=== PATIENT | female | born 1995 | race Caucasian/White ===

== ENCOUNTER → 2021-12-11 09:39 | Outpatient (CLI) | payer OTHER, SELFPAY ==
[2021-12-11 11:31] LABS: HCG,Quantitative 2677 mIU/ml (0-5.42)
== END ==
PROVIDERS: Visit Provider Obstetrics & Gynecology
DX: N92.6 Irregular menstruation, unspecified (principal)
CPT/HCPCS: 36415; 84702

== ENCOUNTER → 2021-12-20 16:47 | Outpatient (CLI) | payer OTHER, SELFPAY | LOC: LAB 12-21 00:22 → LAB.DROPOF 12-21 11:26 | PROVIDERS: Visit Provider Obstetrics & Gynecology | DX: Z34.90 Encounter for supervision of normal pregnancy, unspecified, unspecified trimester (principal) | CPT/HCPCS: 87086 ==

== ENCOUNTER → 2022-01-04 09:29 | Outpatient (CLI) | payer OTHER, SELFPAY ==
[2022-01-04 12:01] LABS: Basophils # 0.1 K/mm3 (0-0.2); Basophils % 0.6 % (0.1-2.0); Eosinophils # 0.2 K/mm3 (0.0-0.4); Eosinophils % 1.7 % (0.1-12.0); Hematocrit 38.9 % (37.0-47.0); Hemoglobin 13.1 g/dL (12.2-16.2); Lymphocytes # 1.9 K/mm3 (0.7-4.5); Lymphocytes % 18.6 % (10-50); Mean Corpuscular HGB Conc 33.6 g/dL (31.8-35.4); Mean Corpuscular Hemoglobin 28.2 pg (27.0-31.2); Monocytes # 0.5 K/mm3 (0.1-1.0); Monocytes % 4.9 % (1.7-9.3); Neutrophils # 7.7 K/mm3 (1.8-7.8); Neutrophils % 74.2 % (37.0-80.0); Platelet Count 288 K/mm3 (142-424); Red Blood Count 4.63 M/mm3 (4.20-5.40); Red Cell Distribution Width 14.1 % (11.5-17.5); White Blood Count 10.4 K/mm3 (4.8-10.8)
[2022-01-05 09:54] LABS: HIV Screen 4th Generation wRfx Non Reactive (Non Reactive); Hepatitis B Surface Antigen Negative (Negative); Hepatitis C Antibody <0.1 s/co ratio (0.0-0.9); Rubella Antibodies, IgG 2.18 index (Immune >0.99)
[2022-01-05 10:10] LABS: Rapid Plasma Reagin Ab Titer Non Reactive (NonRea<1:1)
== END ==
PROVIDERS: Visit Provider Obstetrics & Gynecology
DX: Z34.90 Encounter for supervision of normal pregnancy, unspecified, unspecified trimester (principal)
CPT/HCPCS: 36415; 85025; 86592; 86703; 86762; 86850; 87340; 87380; G0432

== ENCOUNTER → 2022-04-12 13:48 | Outpatient (CLI) | payer OTHER, SELFPAY ==
--- NOTE | 2022-04-12 13:48 | US_ITS ---
FINAL REPORT CLINICAL HISTORY: 20 week anatomy scan FINDINGS: There is a single live intrauterine gestation. Presentation is cephalic. Placenta is anterior. movement is noted. Cervix is closed and measures 3.57 cm. heart rate is noted at 158 beats per minute. Visualized anatomy is unremarkable. AMNIOTIC FLUID: Appropriate amount. MEASUREMENTS: ULTRASOUND AGE: 22 weeks 5 days. GESTATION AGE: 22 weeks 2 days. ESTIMATED WEIGHT: 526 g GROWTH PERCENTILE: 65 % BPD: 5.56 cm consistent with 23 weeks 0 days. OFD: 6.89 cm consistent with 22 weeks 3 days. HC: 19.67 cm consistent with 22 weeks 0 days. AC: 17.75 cm consistent with 22 weeks 5 days. FL: 4.01 cm consistent with 23 weeks 0 days. CEREBELLUM: 2.25 cm consistent with 22 weeks 3 days. HUMERUS: 3.68 cm consistent with 22 weeks 6 days. HC/AC: 1.11 CI: 81% FL/BPD: 72% FL/AC: 23% IMPRESSION: Single living IUP with an ultrasound age of 22 weeks 5 days. Reviewed, Interpreted and Dictated by Segun Bahena MD Transcribed by Merary Akbar Authenticated and [facility] [place]
== END ==
PROVIDERS: PCP Obstetrics & Gynecology; Visit Provider Obstetrics & Gynecology
DX: Z34.90 Encounter for supervision of normal pregnancy, unspecified, unspecified trimester (principal); Z3A.20 20 weeks gestation of pregnancy
CPT/HCPCS: 76811

== ENCOUNTER → 2022-05-04 08:12 | Outpatient (CLI) | payer OTHER, SELFPAY ==
[2022-05-04 08:40] LABS: Basophils # 0.1 K/mm3 (0-0.2); Basophils % 0.6 % (0.1-2.0); Eosinophils # 0.3 K/mm3 (0.0-0.4); Eosinophils % 2.5 % (0.1-12.0); Hematocrit 36.3 % (37.0-47.0); Lymphocytes # 1.8 K/mm3 (0.7-4.5); Lymphocytes % 17.9 % (10-50); Mean Corpuscular HGB Conc 33.1 g/dL (31.8-35.4); Mean Corpuscular Hemoglobin 27.8 pg (27.0-31.2); Mean Corpuscular Volume 84.1 fl (81-99); Mean Platelet Volume 9.2 fl (7.4-10.4); Monocytes # 0.4 K/mm3 (0.1-1.0); Monocytes % 3.6 % (1.7-9.3); Neutrophils # 7.8 K/mm3 (1.8-7.8); Neutrophils % 75.5 % (37.0-80.0); Platelet Count 237 K/mm3 (142-424); Red Blood Count 4.32 M/mm3 (4.20-5.40); Red Cell Distribution Width 14.8 % (11.5-17.5); White Blood Count 10.3 K/mm3 (4.8-10.8)
[2022-05-04 08:49] LABS: Glucose,Fasting 87 mg/dl (74-100)
[2022-05-04 10:05] LABS: Glucose 1 Hour 142 mg/dL (74-100)
== END ==
PROVIDERS: PCP Internal Medicine Adolescent Medicine; Visit Provider Obstetrics & Gynecology
DX: Z34.90 Encounter for supervision of normal pregnancy, unspecified, unspecified trimester (principal)
CPT/HCPCS: 36415; 82951; 85025

== ENCOUNTER → 2022-05-11 08:16 | Outpatient (CLI) | payer OTHER, SELFPAY ==
[2022-05-11 08:45] LABS: Glucose,Fasting 86 mg/dl (74-100)
[2022-05-11 12:00] LABS: Glucose 1 Hour 155 mg/dL (74-100); Glucose 2 Hour 139 mg/dL (74-100)
[2022-05-11 14:16] LABS: Glucose 3 Hour 110 mg/dL (74-100)
== END ==
PROVIDERS: PCP Internal Medicine Adolescent Medicine; Visit Provider Obstetrics & Gynecology
DX: Z3A.24 24 weeks gestation of pregnancy (principal); Z34.90 Encounter for supervision of normal pregnancy, unspecified, unspecified trimester
CPT/HCPCS: 36415; 82951

== ENCOUNTER 2022-07-04 11:56 | Outpatient (CLI) | payer OTHER, SELFPAY ==
[2022-07-04 12:16] VITALS: BMI 36.1
[2022-07-04 12:19] VITALS: BMI 36.1
== END 2022-07-04 14:00 | disposition home or self-care (01) ==
LOC: OBOUT 11:57 → OB 11:58
PROVIDERS: PCP Internal Medicine Adolescent Medicine; Visit Provider Obstetrics & Gynecology
DX: O26.893 Other specified pregnancy related conditions, third trimester (principal); Z3A.35 35 weeks gestation of pregnancy
CPT/HCPCS: 59025

== ENCOUNTER → 2022-07-10 12:42 | Outpatient (CLI) | payer OTHER, SELFPAY ==
--- NOTE | 2022-07-10 12:42 | US_ITS ---
FINAL REPORT CLINICAL HISTORY: lga s/d ratio and growth performed as well FINDINGS: TRANSABDOMINAL ULTRASOUND There is a single live intrauterine gestation. Presentation is cephalic. The cervix is closed and measures 4.0 cm. Placenta is anterior, grade 1. Cardiac activity is confirmed at 138 bpm. Fetus is active. MIRELLA: 21.9 cm MEASUREMENTS: ULTRASOUND AGE: 36 weeks 3 days. GESTATION AGE: 35 weeks 0 days. ESTIMATED WEIGHT: 2791 g GROWTH PERCENTILE: 72% LMP percentile HC/AC: 1.04 CI: 77% FL/BPD: 75% FL/AC: 21% S/D: 2.43 BPD: 9.1 cm corresponding with 36 weeks 5 days. OFD: 11.8 cm. HC: 33.1 cm corresponding with 37 weeks 6 days. AC: 31.9 cm corresponding with 35 weeks 6 days. FL: 6.8 cm corresponding with 35 weeks 0 days. BREATHIN/2 MOVEMENT: 2/2 TONE: 2/2 FLUID VOLUME: 2/2 BPP SCORE: 8/8 IMPRESSION: Single living IUP with an ultrasound age of 36 weeks 3 days. BPP SCORE: 8/8 MIRELLA: 21.9 cm Reviewed, Interpreted and Dictated by Robb Vega MD Transcribed by Rachel Perez Authenticated and . [facility]
== END ==
PROVIDERS: PCP Internal Medicine Adolescent Medicine; Visit Provider Obstetrics & Gynecology
DX: O36.60X0 Maternal care for excessive fetal growth, unspecified trimester, not applicable or unspecified (principal)
CPT/HCPCS: 76816; 76819; 76820

== ENCOUNTER → 2022-07-18 20:44 | Outpatient (CLI) | payer OTHER, SELFPAY | PROVIDERS: PCP Internal Medicine Adolescent Medicine; Visit Provider Obstetrics & Gynecology | DX: Z34.90 Encounter for supervision of normal pregnancy, unspecified, unspecified trimester (principal) | CPT/HCPCS: 86403 ==

== ENCOUNTER 2022-07-29 15:30 | Inpatient (IN) | payer OTHER, SELFPAY ==
[2022-07-29 16:03] VITALS: BMI 36.3
[2022-07-29 16:29] LABS: Coronavirus 19, PCR Not Detected (NotDetected); Influenza A, PCR Not Detected (NotDetected); Influenza B, PCR Not Detected (NotDetected)
[2022-07-29 16:43] VITALS: BP 135/84; PULSE 98; RESP 18; TEMP 36.4; O2SAT 97; BMI 35.9
[2022-07-29 16:47] LABS: Basophils % 0.2 % (0.1-2.0); Eosinophils # 0.1 K/mm3 (0.0-0.4); Eosinophils % 1.2 % (0.1-12.0); Hematocrit 32.9 % (37.0-47.0); Hemoglobin 10.9 g/dL (12.2-16.2); Lymphocytes # 1.9 K/mm3 (0.7-4.5); Mean Corpuscular HGB Conc 33.1 g/dL (31.8-35.4); Mean Corpuscular Volume 81.5 fl (81-99); Monocytes # 0.5 K/mm3 (0.1-1.0); Neutrophils # 9.4 K/mm3 (1.8-7.8); Neutrophils % 78.7 % (37.0-80.0); Platelet Count 237 K/mm3 (142-424); Red Blood Count 4.03 M/mm3 (4.20-5.40); Red Cell Distribution Width 15.2 % (11.5-17.5); White Blood Count 11.9 K/mm3 (4.8-10.8)
[2022-07-29 20:55] VITALS: BP 144/69; PULSE 113; RESP 17; TEMP 36.8; O2SAT 100
[2022-07-30] VITALS (28 sets, daily range): BP systolic 126–176; BP diastolic 63–107; PULSE 71–126; RESP 12–20; TEMP 36.7–36.9; O2SAT 98–100
--- NOTE | 2022-07-30 06:57 | HMH.PHAINT1 ---
Pharmacy Intervention Comments: MEDICATION RECONCILIATION COMPLETED ON PATIENT USING EXTERNAL FILL HISTORY FROM PHARMACY. -PHILIPPE CHRISTIAN, CAROLYND
--- NOTE | 2022-07-30 08:45 | EXP.HP ---
History of Present Illness *Admission Date: 07/30/22 *Reason for visit:: Induction of Labor *History of present illness: 26 yo admitted at 37 6/7 for induction of labor secondary to chronic hypertension, polyhydramnios and non-reactive heart rate tracing care at [facility]-- Dr. Eb HAMMONDS 08/14/22; dating by 6 04/13 ultrasound Current treatment for hypertension with Labetolol 100mg BID MIRELLA 22cm and EFW 72% She failed 1hr GTT (142) but passed 3hr GTT (86, 155, 139, 110) At 37wk routine visit, NST was non-reactive and she was scheduled for induction of labor [facility] Disclaimer: The information contained in this section may have been updated after the patient was seen, as this information can be updated by other users. Medical History Hypertension during in third trimester Mild acid reflux Surgical History No history of previous surgery Social History Smoking Status: Never smoker alcohol intake: never substance use type: denies use current occupational status: employed Travel in the last 8 weeks: None do you feel safe at home: Yes victim of physical abuse: No victim of emotional abuse: No victim of sexual abuse: No Review of Systems Constitutional Constitutional: Reports system reviewed and no additional complaints, except as documented and Denies headache(s) ENT Ears, Nose, Mouth, and Throat: Denies headache(s) *Genitourinary Genitourinary: Denies abnormal vaginal bleeding *Neurologic Neurologic: Denies headache(s) and Denies other visual disturbances Meds Home Medications and Allergies Home Medications Medication Instructions Recorded Confirmed Type prenat.vits,norris,[id number]-iedor 1 tab PO DAILY Supplement 12/20/21 07/29/22 History famotidine 20 mg tablet 20 mg PO DAILY Acid reflux 03/08/22 07/29/22 History labetalol 100 mg tablet 100 mg PO BID High blood pressure 07/29/22 07/29/22 History New Prescriptions to Start Prescriptions: Allergies Allergy/AdvReac Type Severity Reaction Status Date / Time No Known Allergies Allergy Verified 07/25/22 09:19 Exam Data for Last 24 hours Vital signs and Labs for Last 24 Hours: Temp Pulse Resp BP Pulse Ox 98.3 F 114 H 19 138/79 99 07/30/22 03:55 07/30/22 03:55 07/30/22 03:55 07/30/22 03:55 07/30/22 03:55 Laboratory Results - last 24 hr 07/29/22 16:15: WBC 11.9 H, RBC 4.03 L, Hgb 10.9 L, Hct 32.9 L, MCV 81.5, MCH 27.0, MCHC 33.1, RDW 15.2, Plt Count 237, MPV 10.0, Neut % (Auto) 78.7, Lymph % (Auto) 16.0, [place] % (Auto) 4.0, Eos % (Auto) 1.2, Baso % (Auto) 0.2, Neut # (Auto) 9.4 H, Lymph # (Auto) 1.9, [place] # (Auto) 0.5, Eos # (Auto) 0.1, Baso # (Auto) 0.0 07/29/22 16:15: SARS-CoV-2 (PCR) Not detected, Influenza A Untype (PCR) Not detected, Influenza Type B (PCR) Not detected 07/29/22 16:15: Blood Type O Positive, Antibody Screen Negative, Crossmatch (AHG) See Detail I & O for Last 24 hours: Intake & Output 07/27/22 07/28/22 07/29/22 07/30/22 11:59 11:59 11:59 11:59 Weight 203 lb Constitutional Constitutional: no acute distress *Routine HEENT Exam Head: Present normocephalic Eye: Absent conjunctival icterus or scleral injection ENT: Present mucous membranes moist *Routine Neck Exam Neck: Present supple *Routine Respiratory Exam Respiratory: Present CTA bilaterally; Absent respiratory distress *Routine Cardiovascular Exam Cardiovascular: Present RRR *Routine Abdominal Exam Abdominal: Present soft; Absent tenderness or distended *Routine Rectal Exam Rectal:: deferred *Routine Genitalia Exam Genitalia:: normal female Comment:: cervix 3/70/-1, soft AROM with clear fluid; IUPC and FSE placed without difficulty or complication *Routine Extremities Exam Extremities: Present edema (1+) *Routine Skin Exam Skin: Pres
--- NOTE | 2022-07-30 09:58 | P.PN_ITS ---
[facility] Disclaimer: The information contained in this section may have been updated after the patient was seen, as this information can be updated by other users. Medical History Hypertension during in third trimester Mild acid reflux Surgical History No history of previous surgery Social History Smoking Status: Never smoker alcohol intake: never substance use type: denies use current occupational status: employed Travel in the last 8 weeks: None do you feel safe at home: Yes victim of physical abuse: No victim of emotional abuse: No victim of sexual abuse: No [facility] Anesthesia Checklist Patient Identification Patient Identification: Arm Band Structural Data Admitted From: Inpatient Planned Operative Procedure/s: Labor Epidural Consent for Planned Operative Procedure(s) Verified: Yes Verified Documents: Surgical Consent and History and Physical NPO Status Verified Time NPO: 00:00 Additional verifications Anesthesia Reactions: No Airway Assessment C-Spine Mobility Assessed: Yes TMJ Mobility Assessed: Yes Dentition: Good Dentition Neurological Assessment Level of Consciousness: Awake and Alert Anesthesia Plan Anesthesia Risk discussed: Yes Anesthesia Plan: Verified ASA Class: II Anesthesia Type: Epidural
--- NOTE | 2022-07-30 17:18 | EXP.LABOR.NO ---
Labor Note Subjective: Date: 07/30/22 Time: 17:20 Comment:: Regular contractions Cervix minimal chemical cell changer the past 4 hours with increasing caput NST has been improved greatly since starting the amnioinfusion Patient would like to proceed with c section and I am in agreement with this plan Objective: Cervical Dilation:: 6 Effacement:: 90% Station: 0 Assessment: Labor progressing?: No Plan: Plan for ?: Yes Comment:: Will proceed to the OR Risks of procedure discussed with patient and , and questions answered
--- NOTE | 2022-07-30 17:29 | PC.NURSE ---
1729 surgery team paged 1730 Rodolfo Singletary returned the call 1732 Elin Willis returned the call 1733 Callie Galicia returned the call
--- NOTE | 2022-07-30 19:58 | EXP.ANES.I ---
[facility] Anesthesia Record Part I Anesthesia Record I Intake, IV Amount: 1,000 Estimated blood loss (mL): 700 Urine output (mL): 200 Blood Pressure: 158/94 SaO2: 99 Pulse Rate: 71 Respiratory Rate: 12 Temperature: 98.3 F Patient is:: Awake and Stable Stable to PACU at:: 19:55
--- NOTE | 2022-07-30 20:20 | SUR.PHASEI ---
2015- JEANCARLOS De La Torre made aware of pt's elevated BP in PACU. D/t pt having methergine in OR and pt has scheduled Labetolol @ 2100- no new orders.
--- NOTE | 2022-07-30 20:28 | P.OP_ITS ---
Date of procedure: 07/30/22 Pre-op Diagnosis:: 1. 37 5/7 weeks 2. Failure to progress 3. Non-reassuring heart rate tracing 4. Polyhydramnios 5. CHTN 6. Maternal anemia Post-op Diagnosis:: Same Procedure performed:: Primary Low Transverse C Section Surgeon:: Callie Parson MD Instrument Lens Grinder Apprentice(s):: Elin Bailey TRANSMISSION OPERATOR:: Rodolfo Singletary Anesthesia: spinal Estimated blood loss (mL): 700 Operative findings:: Vigorous male infant in vertex presentation Grossly normal uterus, fallopian tubes and ovaries bilaterally Operative note:: The patient was taken to the OR and spinal was administered without difficulty. She was prepped and draped in normal sterile fashion. A pfannenstiel skin incision was made with the scalpel and carried down to the fascia. The fascia was incised in the midline and sharply dissected off the rectus muscles. The muscles were in the midline and the peritoneum was entered sharply and extended bluntly. The Jomar-O self retaining retractor was placed in the abdomen and a bladder flap was created. The uterus was incised in the lower uterine segment in a transverse fashion and extended bluntly. Amniotomy was performed and clear fluid noted. The infant was delivered in controlled fashion, without complication or shoulder dystocia. The infant was vigorous at and handed to awaiting helmet hat sweatband puncher for evaluation after cord clamped and cut. Cord blood was collected and a cord segment was preserved. The placenta was manually extracted and noted to be intact. The uterus was repaired with 0- vicryl in a running/locked fashion. The peritoneum was closed with 2-0 vicryl in a running fashion. The fascia was closed with #1 vicryl in a running fashion. The subcutaneous fat was closed with 2-0 vicryl in an interrupted fas hion. The skin was closed with cami. The patient tolerated the procedure well. Sponge, lap, needle and instrument counts were correct x 2. She was taken to PACU awake and in stable condition. EBL: 700cc Condition: stable Disposition: PACU Complications:: None
--- NOTE | 2022-07-30 21:12 | SUR.OPER ---
1851- viable infant male born at this time 1900- cord pH of 7.4 from RT Sonal. Results given to MD Parson, NNO 1908- 0.2mg of IM Methergine given at this time 2028- MD Parson notified of QBL of 1100.6 *2 units of PRBC's were already placed on hold *20g placed in LAC by this RN 2029- Report given to Dalila RN
[2022-07-31 06:53] LABS: Hematocrit 28.1 % (37.0-47.0); Hemoglobin 9.3 g/dL (12.2-16.2)
--- NOTE | 2022-07-31 08:58 | EXP.ACUTE.PN ---
Subjective *Date: 07/31/22 *Time: 08:58 Interval history: She continues to do very well this morning. She is breast-feeding. Her lochia is normal. The pain is reasonably well controlled. Medical Exam Vital signs and Labs for Last 24 Hours: Vital Signs Temp Pulse Pulse Resp BP BP Pulse Ox 07/30/22 23:50 121 H 133/65 07/30/22 23:19 114 H 130/84 07/30/22 22:59 123 H 144/66 H 07/30/22 22:31 126 H 167/74 H 07/30/22 22:25 123 H 139/82 07/30/22 22:20 104 H 146/75 H 07/30/22 22:10 102 H 148/74 H 07/30/22 22:05 104 H 148/76 H 07/30/22 22:00 97 H 149/75 H 07/30/22 21:55 121 H 142/89 H 07/30/22 21:50 84 156/94 H 07/30/22 21:45 93 H 145/87 H 07/30/22 21:40 98 H 135/82 07/30/22 21:30 83 150/91 H 07/30/22 21:25 84 146/79 H 07/30/22 21:20 79 143/78 H 07/30/22 21:15 89 152/85 H 07/30/22 22:15 98 H 150/76 H 07/30/22 21:35 81 150/88 H 07/30/22 21:10 76 153/89 H 07/30/22 20:55 98.3 F 120 H 20 143/63 H 100 07/30/22 20:05 73 16 160/94 H 99 07/30/22 20:25 98.5 F 98 H 17 161/107 H 100 07/30/22 20:15 75 16 176/106 H 100 07/30/22 19:55 98.3 F 78 18 158/94 H 98 07/30/22 19:59 98.3 F 71 12 158/94 H Intake and Output 07/30/22 07/31/22 07/31/22 19:59 03:59 11:59 Intake Total 1000 / 1000 Output Total 950 / 950 Balance 1000 / 50 -950 / 50 Intake: Intake, Total IV Amount 1000 / 1000 Output: Output, Urine Amount (Catheter) 950 / 950 Carias 950 / 950 Laboratory Results - last 24 hr 07/30/22 19:07: Cord ABG pH 7.40 07/31/22 06:40: Hgb 9.3 L, Hct 28.1 L I & O for Labs for Last 24 Hours: Intake & Output 07/28/22 07/29/22 07/30/22 07/31/22 11:59 11:59 11:59 11:59 Intake Total 1000 / 1000 Output Total 950 / 950 Balance 50 / 50 Weight 203 lb Head: Present atraumatic ENT: Present normal exam Respiratory: Present normal respiratory effort; Absent accessory muscle use Assessment and Plan *Assessment and plan (1) Polyhydramnios affecting : Status: Acute Category: Medical Code(s): O40.9XX0 - Polyhydramnios, unspecified trimester, not applicable or unspecified (2) Hypertension during in third trimester: Status: Acute Category: Medical Code(s): O16.3 - Unspecified maternal hypertension, third trimester (3) Obesity affecting : Status: Acute Category: Medical Code(s): O99.210 - Obesity complicating , unspecified trimester (4) Delivery by section of full-term infant: Status: Acute Category: Medical Code(s): O82 - Encounter for delivery without indication (5) pelvic disproportion delivered: Status: Acute Category: Medical Code(s): O33.9 - Maternal care for disproportion, unspecified (6) Anemia during : Status: Acute Category: Medical Code(s): O99.019 - Anemia complicating , unspecified trimester Plan She continues to do well this morning. Her hemoglobin is slightly low at 9.3 but she started out at 10.9. She is asymptomatic with respect to this. She will be seen again tomorrow by Dr. Parson and will be sent home at the discretion of Dr. Parson. I suspect either tomorrow or the next day.
--- NOTE | 2022-07-31 15:48 | P.PNANES_ITS ---
[facility] Anesthesia Record Part II Anesthesia Record Part II Discharge Time: 20:25 Destination: Obstetric PACU nurse assessment reviewed?: Yes Patient Condition:: Good Anesthesia Complications:: None Swallowing reflex intact?: Yes Cyanosis?: No Blood Pressure: 161/107 Pulse Rate: 98 Temperature: 98.5 F Mental Status: Alert & Oriented Pain level:: 0 Nausea and/or vomitting:: None Intake, IV Amount: 0
[2022-07-31 15:50] VITALS: BP 161/107; PULSE 98; TEMP 36.9
[2022-07-31 20:30] VITALS: BP 129/70; PULSE 125; RESP 17; TEMP 36.9; O2SAT 99
[2022-08-01 04:30] VITALS: BP 129/67; PULSE 111; RESP 17; TEMP 36.7; O2SAT 99
[2022-08-01 09:08] VITALS: BP 133/74; PULSE 100; RESP 18; TEMP 36.8; O2SAT 98
--- NOTE | 2022-08-01 11:38 | PC.NURSE ---
All charting and care completed under my direct supervision
--- NOTE | 2022-08-01 15:37 | EXP.DC.SUM ---
General Admission date:: 07/29/22 HPI HPI HPI: 26 yo admitted at 37 6/7 for induction of labor secondary to chronic hypertension, polyhydramnios and non-reactive heart rate tracing care at [facility]-- Dr. Eb HAMMONDS 08/14/22; dating by 04/13 ultrasound Current treatment for hypertension with Labetolol 100mg BID MIRELLA 22cm and EFW 72% She failed 1hr GTT (142) but passed 3hr GTT (86, 155, 139, 110) At 37wk routine visit, NST was non-reactive and she was scheduled for induction of labor Hospital Course Hospital Course Hospital Course: She had primary CS on 07/30/22 for failure to progress in labor Postop/ course uneventful She is discharged home on POD #2 in stable condition She is ambulating and voiding without difficulty or complication She is tolerating a regular diet BP has been stable off labetalol Exam Data for Last 24 hours Vital signs and Labs for Last 24 Hours: Temp Pulse Resp BP Pulse Ox 98.2 F 100 H 18 133/74 98 08/01/22 09:08 08/01/22 09:08 08/01/22 09:08 08/01/22 09:08 08/01/22 09:08 I & O for Last 24 hours: Intake & Output 07/30/22 07/31/22 08/01/22 08/02/22 11:59 11:59 11:59 11:59 Intake Total 1000 / 1000 0 / 0 Output Total 950 / 950 Balance 50 / 50 0 / 0 Weight 203 lb DS: Diagnosis Discharge Diagnosis (1) Polyhydramnios affecting : Status: Acute (2) Hypertension during in third trimester: Status: Acute (3) Obesity affecting : Status: Acute (4) Delivery by section of full-term : Status: Acute (5) pelvic disproportion delivered: Status: Acute (6) Anemia during : Status: Acute Meds Home Medications and Allergies Home Medications Medication Instructions Recorded Confirmed Type prenat.vits,norris,fow-finc-fhvtf 1 tab PO DAILY Supplement 12/20/21 07/29/22 History famotidine 20 mg tablet 20 mg PO DAILY Acid reflux 03/08/22 07/29/22 History ibuprofen 400 mg tablet 800 mg PO Q6HP PRN Mild To 08/01/22 Rx Moderate Pain #30 tabs oxycodone 5 mg tablet 5 mg PO Q4HP PRN Moderate Pain #24 08/01/22 Rx tabs New Prescriptions to Start Prescriptions: ibuprofen Callie Parson oxycodone Callie Parson Allergies Allergy/AdvReac Type Severity Reaction Status Date / Time No Known Allergies Allergy Verified 07/25/22 09:19 Discharge Plan Disposition Patient Disposition: Home, Self-Care Discharge Order Discharge Orders: Discharge Order (Routine); Ordered 08/01/22 Ordered By: Callie Parson Follow up Plan Follow up with: Callie Parson MD [Staff Physician] - 08/13/22 10:45 am Prescriptions/Medication Reconciliation: New ibuprofen 400 mg Tablet 800 mg PO Q6HP PRN (Reason: Mild To Moderate Pain) Qty: 30 0RF oxycodone 5 mg Tablet 5 mg PO Q4HP PRN (Reason: Moderate Pain) Qty: 24 0RF Continued prenat.vits,norris,[id number]-ocyi-lncpg Tablet 1 tab PO DAILY famotidine 20 mg tablet 20 mg PO DAILY Discontinued labetalol 100 mg tablet 100 mg PO BID Problem Reconciliation Problems Reviewed?: Yes Patient Discharge Instructions ACTIVITY: Limited activity DIET: regular diet Additional Instructions: No strenuous activity or heavy lifting until released by your doctor. Drink plenty of fluids. Don't lift anything heavier then your . Patient Instructions: Depression, Hemorrhage, DI for , DI for Pre-eclampsia, Surgical Site Infection, How to Care for a Surgical Wound-[place], Catheter-associated Urinary Tract Infection, [facility] Post Discharge Instructions Providers Primary Care Provider: Angelo Nicole Admit Provider: Callie Parson Attending Provider: Callie Parson
== END 2022-08-01 16:35 | disposition home or self-care (01) | DRG 788 ==
PROVIDERS: Admitting Provider Obstetrics & Gynecology; PCP Internal Medicine Adolescent Medicine; Visit Provider Obstetrics & Gynecology
PROC: 10D00Z1 Extraction of Products of Conception, Low, Open Approach (ICD-10-PCS; CPT 59514; principal; 2022-07-30 18:30)
DX: O10.02 Pre-existing essential hypertension complicating childbirth (principal); Z3A.37 37 weeks gestation of pregnancy; O76 Abnormality in fetal heart rate and rhythm complicating labor and delivery; Z37.0 Single live birth; O40.3XX0 Polyhydramnios, third trimester, not applicable or unspecified; O99.810 Abnormal glucose complicating pregnancy; O99.02 Anemia complicating childbirth; D64.9 Anemia, unspecified
CPT/HCPCS: 59514; 36415; 59025; 82800; 85014; 85018; 85025; 86850; C1758; C9290; C9803; J2405; U0003; U0005

== ENCOUNTER 2024-06-28 12:19 | Outpatient (CLI) | payer OTHER, SELFPAY ==
[2024-06-28 13:36] LABS: HCG,Quantitative 646 mIU/ml (0-5.42)
[2024-06-29 12:11] LABS: Progesterone 7.9 ng/mL (.)
== END 2024-06-28 23:59 | disposition home or self-care (01) ==
LOC: LAB 12:20
PROVIDERS: PCP Internal Medicine Adolescent Medicine; Visit Provider Obstetrics & Gynecology
DX: Z32.01 Encounter for pregnancy test, result positive (principal)
CPT/HCPCS: 36415; 84144; 84702

== ENCOUNTER 2024-07-22 16:26 | Outpatient (CLI) | payer OTHER, SELFPAY ==
[2024-07-26 21:08] LABS: Neisseria gonorrhoeae, NAA Negative (Negative)
== END 2024-07-22 23:59 | disposition home or self-care (01) ==
LOC: LAB.DROPOF 16:26
PROVIDERS: PCP Obstetrics & Gynecology; Visit Provider Obstetrics & Gynecology
DX: Z34.01 Encounter for supervision of normal first pregnancy, first trimester (principal); Z3A.01 Less than 8 weeks gestation of pregnancy
CPT/HCPCS: 87491; 87591

== ENCOUNTER 2024-07-27 07:09 | Outpatient (CLI) | payer OTHER, SELFPAY ==
[2024-07-27 08:06] LABS: Basophils % 0.5 % (0.1-2.0); Eosinophils # 0.2 Kmm3 (0.0-0.4); Eosinophils % 2.5 % (0.1-12.0); Hematocrit 38.6 % (37.0-47.0); Hemoglobin 12.5 g/dL (12.2-16.2); Lymphocytes # 2.2 K/mm3 (0.7-4.5); Lymphocytes % 26.5 % (10-50); Mean Corpuscular HGB Conc 32.4 g/dL (31.8-35.4); Mean Corpuscular Hemoglobin 26.5 pg (27.0-31.2); Mean Corpuscular Volume 81.8 fl (81-99); Mean Platelet Volume 10.9 fl (7.4-10.4); Monocytes # 0.5 K/mm3 (0.1-1.0); Monocytes % 6.2 % (1.7-9.3); Neutrophils # 5.4 K/mm3 (1.8-7.8); Neutrophils % 63.9 % (37.0-80.0); Nucleated Red Blood Cells # 0 10^3/uL; Nucleated Red Blood Cells % 0 %; Platelet Count 286 K/mm3 (142-424); Red Blood Count 4.72 M/mm3 (4.20-5.40); Red Cell Distribution Width 13.8 % (11.5-17.5); Red Cell Distribution Width-SD 40.6 fL; White Blood Count 8.4 K/mm3 (4.8-10.8)
[2024-07-27 09:15] LABS: Hepatitis C Ab Qual. W/ RFX NEGATIVE (Negative)
[2024-07-28 08:17] LABS: Hepatitis B Surface Antigen Negative (Negative); Rubella Antibodies, IgG 1.83 index (Immune >0.99)
[2024-07-28 16:02] LABS: RPR W/RFX Titers Nonreactive (Nonreactive)
[2024-07-29 11:15] LABS: HIV Combo NEGATIVE (Negative)
== END 2024-07-27 23:59 | disposition home or self-care (01) ==
LOC: LAB 07:10
PROVIDERS: PCP Internal Medicine Adolescent Medicine; Visit Provider Obstetrics & Gynecology
DX: Z34.01 Encounter for supervision of normal first pregnancy, first trimester (principal)
CPT/HCPCS: 36415; 85025; 86592; 86762; 86803; 86850; 87340; 87389

== ENCOUNTER 2024-08-08 10:45 | Outpatient (CLI) | payer OTHER, SELFPAY ==
[2024-08-08 12:00] LABS: Chloride 108 mmol/L (98-107); Potassium 4.1 mmoL/L (3.5-5.1); Sodium 134 mmol/L (136-145)
[2024-08-08 12:03] LABS: Alanine Aminotransferase 17 U/L (12-78); Albumin/Globulin Ratio 1.6 (1.1-1.8); Alkaline Phosphatase 52 U/L (38-126); Anion Gap 10.1 mEq/L (5-15); Aspartate Amino Transferase 22 U/L (14-36); Bilirubin,Total 0.5 mg/dl (0.2-1.3); Blood Urea Nitrogen 5 mg/dl (7-17); Carbon Dioxide 20 mmol/L (22.0-30.0); Estimated Glomerular Filt Rate 119 ml/min (>60); GFR (African American) 144 ML/MIN (>60); Globulin 2.5 g/dL (1.3-3.2); Total Protein,Serum 6.5 g/dl (6.3-8.2)
[2024-08-08 12:04] LABS: Calcium 9.4 mg/dl (8.4-10.2); Glucose 97 mg/dl (74-100)
[2024-08-08 12:13] LABS: Uric Acid 3.4 mg/dl (2.5-6.2)
[2024-08-08 12:39] LABS: Total Protein 24 Hour,Urine 292 mg/24 hr (40-90); Total Volume,Urine 2650 mL (600-1600)
== END 2024-08-08 23:59 | disposition home or self-care (01) ==
LOC: LAB 10:46
PROVIDERS: PCP Internal Medicine Adolescent Medicine; Visit Provider Obstetrics & Gynecology
DX: O13.1 Gestational [pregnancy-induced] hypertension without significant proteinuria, first trimester (principal); Z3A.09 9 weeks gestation of pregnancy
CPT/HCPCS: 36415; 80053; 84155; 84550

== ENCOUNTER 2024-10-25 13:41 | Outpatient (CLI) | payer BC, SELFPAY ==
--- NOTE | 2024-10-25 14:00 | US_ITS ---
PROCEDURE: US OB /MATERNAL DETAIL CLINICAL INDICATION: 20 week anatomy scan COMPARISON: There are no recent ultrasounds for comparison FINDINGS: Transabdominal sonographic images of the pelvis were obtained. From her established due date she is 20 weeks 6 days. Single viable intrauterine gestation. Cephalic position. Placenta: Posteriorplacenta grade 1. There is an average amount of fluid. The cervix appears satisfactory. Closed and measuring 3.68 cm in length. Complete survey performed and was unremarkable on the submitted images as in PACS. No discrete anomalies identified on survey imaging by technologist. Active fetus. Three-vessel cord with satisfactory umbilical cord insertion. 4- chamber heart noted. Situs, aortic arch, LVOT, RVOT, three-vessel view appear normal. Survey of brain & ventricles Unremarkable. Cerebellum, thalamus, choroid plexus, cisterna magna appear normal. Face and neck survey unremarkable. Profile, nasion, lips and nose appeared normal. Diaphragm and chest views unremarkable. Abdomen: Both kidneys noted and unremarkable. Stomach and bladder noted and satisfactory. Spine: Survey of the spine satisfactory with no anomalies identified nor imaged. Cervical, thoracic, lower spine appear normal. Both arms and legs noted. Amniotic Fluid: Adequate. MVP 4.56 cm Measurements: Average ultrasound age 21weeks 2days. Estimated due date by ultrasound age 1103/05/2025. Estimated weight 407g BPD = 21weeks 5days HC = 20weeks 4days AC = 21weeks 1day FL = 21weeks 4days Growth Percentile= Heart Rate = 160bpm Cerebellum = 20weeks 0 days HC/AC is 1.13 FL/BPD is 0.7 FL/AC is 0.23 IMPRESSION: 1. Viable fetus in the cephalic presentation with a posterior placenta grade 1. 2. The fluid is within normal limits with an MVP 4.56 cm. 3. Anatomical scan appears normal although somewhat difficult due to the patient's body habitus. 4. biometry is consistent with dates. Dictated by: Tyron Elizondo MD 10/26/2024 15:44 Tyron Elizondo MD in [place] 10/26/2024 15:44
== END 2024-10-25 23:59 | disposition home or self-care (01) ==
LOC: RAD 13:42
PROVIDERS: PCP Internal Medicine Adolescent Medicine; Visit Provider Obstetrics & Gynecology
DX: Z36.89 Encounter for other specified antenatal screening (principal); Z3A.21 21 weeks gestation of pregnancy
CPT/HCPCS: 76811

== ENCOUNTER 2024-11-29 07:02 | Outpatient (CLI) | payer BC, SELFPAY ==
[2024-11-29 08:34] LABS: Hematocrit 31.5 % (37.0-47.0); Hemoglobin 10.3 g/dL (12.2-16.2); Immature Granulocytes % 0.3 %; Mean Corpuscular HGB Conc 32.7 g/dL (31.8-35.4); Mean Corpuscular Hemoglobin 27.8 pg (27.0-31.2); Mean Corpuscular Volume 84.9 fl (81-99); Nucleated Red Blood Cells % 0 %; Platelet Count 202 K/mm3 (142-424); Red Blood Count 3.71 M/mm3 (4.20-5.40); Red Cell Distribution Width-SD 44.7 fL; White Blood Count 8.8 K/mm3 (4.8-10.8)
[2024-11-29 09:18] LABS: Glucose 1 Hour 127 mg/dL (74-100)
[2024-11-30 07:38] LABS: RPR W/RFX Titers Nonreactive (Nonreactive)
== END 2024-11-29 23:59 | disposition home or self-care (01) ==
LOC: LAB 07:03
PROVIDERS: PCP Internal Medicine Adolescent Medicine; Visit Provider Obstetrics & Gynecology
DX: O10.919 Unspecified pre-existing hypertension complicating pregnancy, unspecified trimester (principal); O09.299 Supervision of pregnancy with other poor reproductive or obstetric history, unspecified trimester; O99.210 Obesity complicating pregnancy, unspecified trimester; E66.9 Obesity, unspecified; Z3A.00 Weeks of gestation of pregnancy not specified
CPT/HCPCS: 36415; 82947; 85025; 86592

== ENCOUNTER 2024-12-21 12:43 | Outpatient (CLI) | payer BC, SELFPAY ==
--- NOTE | 2024-12-21 13:00 | US_ITS ---
PROCEDURE: US OB BIOPHYSICAL PROFILE CLINICAL INDICATION: BPP and growth COMPARISON: US US OB /MATERNAL DETAIL from 10/25/2024 FINDINGS: Transabdominal sonographic images of the uterus were obtained. From her established due date she is 29weeks 0 days. The following parameters are obtained: Viable Fetus in the cephalic presentation with a posterior placenta grade 2. Average ultrasound age is 30weeks 2days Estimated weight 1,440g, 3 lb 3 oz Cervix measures 3.48 cm. Measurements: heart Rate = 140bpm BPD = 31weeks 1day, 93 percentile HC = 30weeks 4days, 62 percentile AC = 29weeks 0 days, 40 percentile FL = 30weeks 3days, 75 percentile HC/AC is 1.13 FL/BPD is 0.75 FL/AC is 0.24 64 percentile Amniotic fluid index: 19.31cm, MVP 6.10 cm Qualitative AFV:2 Breathing movements: 2 Gross Body Movements: 2 Tone: 2 Biophysical profile score: 8 No obvious anomalies evident.Kidneys, profile, stomach, bladder, four-chamber heart, three-vessel cord appear normal. IMPRESSION: 1. Viable fetus in the cephalic presentation with a posterior placenta grade 2. 2. The fluid is within normal limits with an amniotic fluid index 19.31 cm, MVP 6.10 cm. 3. Biophysical profile is 8/8 with good breathing movement and movement seen. 4. There has been good interval growth with the fetus currently 64th percentile. 5. Limited anatomical scan appears normal. Dictated by: Tyron Elizondo MD 12/21/2024 18:29 Tyron Elizondo MD in [place] 12/21/2024 18:29
== END 2024-12-21 23:59 | disposition home or self-care (01) ==
LOC: RAD 12:44
PROVIDERS: PCP Internal Medicine Adolescent Medicine; Visit Provider Obstetrics & Gynecology
DX: O09.293 Supervision of pregnancy with other poor reproductive or obstetric history, third trimester (principal); O10.913 Unspecified pre-existing hypertension complicating pregnancy, third trimester; O99.213 Obesity complicating pregnancy, third trimester; E66.9 Obesity, unspecified; Z3A.29 29 weeks gestation of pregnancy
CPT/HCPCS: 76816; 76819

== ENCOUNTER 2025-01-13 15:02 | Outpatient (CLI) | payer BC, SELFPAY ==
--- NOTE | 2025-01-13 15:15 | US_ITS ---
PROCEDURE: US OB BIOPHYSICAL PROFILE CLINICAL INDICATION: BPP for CHTN COMPARISON: US US OB /MATERNAL DETAIL from 10/25/2024 US US OB BIOPHYSICAL PROFILE from 12/21/2024 FINDINGS: Transabdominal sonographic images of the uterus were obtained. From her established due date she is 32weeks 2days. The following parameters are obtained: Viable Fetus in the cephalic presentation with a posterior placenta grade 2. The cervix measures 3.85 cm. Measurements: heart Rate = 139bpm Amniotic fluid index: 14.57cm, MVP 7.50 cm Qualitative AFV:2 Breathing movements: 2 Gross Body Movements: 2 Tone: 2 Biophysical profile score: 8 No obvious anomalies evident.Kidneys, profile, stomach, bladder, four-chamber heart, three-vessel cord appear normal. IMPRESSION: 1. Viable fetus in the cephalic presentation with a posterior placenta grade 2. 2. The fluid is within normal limits with an amniotic fluid index 14.57 cm, MVP 7.50 cm. 3. Biophysical profile is 8/8 with good breathing movement and movement seen. 4. Limited anatomical scan appears normal. Dictated by: Tyron Elizondo MD 01/14/2025 05:50 Tyron Elizondo MD in [facility] 01/14/2025 05:50
== END 2025-01-13 23:59 | disposition home or self-care (01) ==
LOC: RAD 15:02
PROVIDERS: PCP Internal Medicine Adolescent Medicine; Visit Provider Obstetrics & Gynecology
DX: O10.913 Unspecified pre-existing hypertension complicating pregnancy, third trimester (principal); O99.213 Obesity complicating pregnancy, third trimester; O09.293 Supervision of pregnancy with other poor reproductive or obstetric history, third trimester; E66.9 Obesity, unspecified; Z3A.32 32 weeks gestation of pregnancy
CPT/HCPCS: 76819

== ENCOUNTER 2025-01-20 15:03 | Outpatient (CLI) | payer BC, SELFPAY ==
--- NOTE | 2025-01-20 15:15 | US_ITS ---
PROCEDURE: US OB BIOPHYSICAL PROFILE CLINICAL INDICATION: BPP and growth for CHTN COMPARISON: US US OB /MATERNAL DETAIL from 10/25/2024 US US OB BIOPHYSICAL PROFILE from 12/21/2024 US US OB BIOPHYSICAL PROFILE from 01/13/2025 FINDINGS: Transabdominal sonographic images of the uterus were obtained. From her established due date she is 33weeks 2days. The following parameters are obtained: Viable Fetus in the cephalic presentation with a posterior placenta grade 2. Average ultrasound age is 34weeks 6days Estimated weight 2,529g, 5 lb 9 oz The cervix measures 4.03 cm in length. Measurements: heart Rate = 146bpm BPD = 35weeks 0 days, 87 percentile HC = 35weeks 0 days, 57 percentile AC = 35weeks 3days, 95 percentile FL = 33weeks 6days, 54 percentile HC/AC is 0.99 FL/BPD is 0.76 FL/AC is 0.21 86 percentile Amniotic fluid index: 16.28cm, MVP 6.32 cm. Qualitative AFV:2 Breathing movements: 2 Gross Body Movements: 2 Tone: 2 Biophysical profile score: 8 No obvious anomalies evident.Kidneys, profile, stomach, bladder, four-chamber heart, three-vessel cord appear normal. IMPRESSION: 1. Viable fetus in the cephalic presentation with a posterior placenta grade 2. 2. The fluid is within normal limits with an amniotic fluid index 16.28 cm, MVP 6.32 cm. 3. Biophysical profile is 8/8 with good breathing movement and movement seen. 4. There has been good interval growth with the fetus currently 86th percentile. The abdominal circumference shows accelerated growth and is 2 weeks ahead. Suggest repeat growth in 4 weeks. 5. Limited anatomical scan appears normal. Dictated by: Tyron Elizondo MD 01/20/2025 17:02 Tyron Elizondo MD in [facility] 01/20/2025 17:02
== END 2025-01-20 23:59 | disposition home or self-care (01) ==
LOC: RAD 15:04
PROVIDERS: PCP Internal Medicine Adolescent Medicine; Visit Provider Obstetrics & Gynecology
DX: O36.63X0 Maternal care for excessive fetal growth, third trimester, not applicable or unspecified (principal); O10.913 Unspecified pre-existing hypertension complicating pregnancy, third trimester; O09.293 Supervision of pregnancy with other poor reproductive or obstetric history, third trimester; O99.213 Obesity complicating pregnancy, third trimester; E66.9 Obesity, unspecified; Z3A.33 33 weeks gestation of pregnancy
CPT/HCPCS: 76816; 76819

== ENCOUNTER 2025-01-24 15:42 | Outpatient (CLI) | payer BC, SELFPAY ==
[2025-01-24 15:50] VITALS: BMI 34.9
--- NOTE | 2025-01-24 15:51 | US_ITS ---
PROCEDURE INFORMATION: Exam: US Biophysical Profile Without Non-Stress Test Exam date and time: 01/24/2025 3:40 PM Age: 29 years old Clinical indication: Other: Non reactive nst; ; Additional info: Non-reactive nst in office TECHNIQUE: Imaging protocol: US biophysical profile without non-stress testing. COMPARISON: US OB BIOPHYSICAL PROFILE 01/20/2025 2:54 PM FINDINGS: heart rate: 134 bpm Amniotic fluid index: MIRELLA is 15.39 cm. BIOPHYSICAL PROFILE: breathing (BPP): 2 /2 gross body movement (BPP): 2 /2 tone (BPP): 2 /2 Amniotic fluid (BPP): 2 /2 Biophysical profile score (BPP): 8 /8 MATERNAL ANATOMY: Cervix: Cervical length measures 4.54 cm. IMPRESSION: Single viable intrauterine gestation. Biophysical profile score 8/8.
[2025-01-24 16:18] VITALS: BP 120/87; PULSE 112; RESP 18; TEMP 36.6; O2SAT 98; BMI 34.9
== END 2025-01-24 17:01 | disposition home or self-care (01) ==
LOC: OBOUT 15:45 → OB 15:47
PROVIDERS: PCP Internal Medicine Adolescent Medicine; Visit Provider Obstetrics & Gynecology
DX: O28.8 Other abnormal findings on antenatal screening of mother (principal); Z3A.33 33 weeks gestation of pregnancy
CPT/HCPCS: 59025; 76819; 99212; G0463

== ENCOUNTER 2025-01-25 09:29 | Outpatient (CLI) | payer BC, SELFPAY ==
[2025-01-25 09:50] VITALS: BP 119/79; PULSE 114; RESP 17; TEMP 36.7; O2SAT 100; BMI 34.9
== END 2025-01-25 10:09 | disposition home or self-care (01) ==
LOC: OBOUT 09:29 → OB 09:30
PROVIDERS: PCP Internal Medicine Adolescent Medicine; Visit Provider Obstetrics & Gynecology
DX: Z34.83 Encounter for supervision of other normal pregnancy, third trimester (principal); Z3A.34 34 weeks gestation of pregnancy
CPT/HCPCS: 59025; 99212; G0463

== ENCOUNTER 2025-01-27 14:32 | Outpatient (CLI) | payer BC, SELFPAY ==
--- NOTE | 2025-01-27 14:45 | US_ITS ---
PROCEDURE: US OB BIOPHYSICAL PROFILE CLINICAL INDICATION: BPP for CHTN COMPARISON: US US OB /MATERNAL DETAIL from 10/25/2024 US US OB BIOPHYSICAL PROFILE from 12/21/2024 US US OB BIOPHYSICAL PROFILE from 01/13/2025 US OB BIOPHYSICAL PROFILE from 01/20/2025 US OB BIOPHYSICAL PROFILE from 01/24/2025 FINDINGS: Transabdominal sonographic images of the uterus were obtained. From her established due date she is 34weeks 2days. The following parameters are obtained: Viable Fetus in the cephalic presentation with a posterior right lateral placenta grade 2. The cervix measures 3.2 cm in length Measurements: heart Rate = 142bpm Amniotic fluid index: 13.96cm, MVP 5.61 cm Qualitative AFV:2 Breathing movements: 2 Gross Body Movements: 2 Tone: 2 Biophysical profile score: 8 No obvious anomalies evident.Kidneys, profile, stomach, bladder, four-chamber heart, three-vessel cord appear normal. IMPRESSION: 1. Viable fetus in the cephalic presentation with a posterior right lateral placenta grade 2. 2. The fluid is within normal limits with an amniotic fluid index 13.96 cm, MVP 5.61 cm. 3. Biophysical profile is 8/8 with good breathing movement and movement seen. 4. Limited anatomical scan appears normal. Dictated by: Tyron Elizondo MD 01/27/2025 16:13 Tyron Elizondo MD in [facility] 01/27/2025 16:13
== END 2025-01-27 23:59 | disposition home or self-care (01) ==
LOC: RAD 14:33
PROVIDERS: PCP Internal Medicine Adolescent Medicine; Visit Provider Obstetrics & Gynecology
DX: O10.913 Unspecified pre-existing hypertension complicating pregnancy, third trimester (principal); O09.293 Supervision of pregnancy with other poor reproductive or obstetric history, third trimester; O99.213 Obesity complicating pregnancy, third trimester; E66.9 Obesity, unspecified; Z3A.34 34 weeks gestation of pregnancy
CPT/HCPCS: 76819

== ENCOUNTER 2025-02-03 14:57 | Outpatient (CLI) | payer BC, SELFPAY ==
--- NOTE | 2025-02-03 15:15 | US_ITS ---
PROCEDURE: US OB BIOPHYSICAL PROFILE CLINICAL INDICATION: BPP for CHTN COMPARISON: US US OB /MATERNAL DETAIL from 10/25/2024 US US OB BIOPHYSICAL PROFILE from 12/21/2024 US US OB BIOPHYSICAL PROFILE from 01/13/2025 US OB BIOPHYSICAL PROFILE from 01/20/2025 US OB BIOPHYSICAL PROFILE from 01/24/2025 US OB BIOPHYSICAL PROFILE from 01/27/2025 FINDINGS: Transabdominal sonographic images of the uterus were obtained. From her established due date she is 35weeks 2days. The following parameters are obtained: Viable Fetus in the cephalic presentation with a posterior right lateral placenta grade 2. Average ultrasound age is 35weeks 5days Estimated weight 2,704g, 5 lb 15 oz The cervix measures 3.0 cm in length. Measurements: heart Rate = 144bpm BPD = 34weeks 3days, 26 percentile HC = 36weeks 3days, 45 percentile AC = 35weeks 2days, 57 percentile FL = 36weeks 3days, 70 percentile HC/AC is 1.03 FL/BPD is 0.83 FL/AC is 0.23 56 percentile Amniotic fluid index: 11.21cm, MVP 3.70 cm Qualitative AFV:2 Breathing movements: 2 Gross Body Movements: 2 Tone: 2 Biophysical profile score: 8 No obvious anomalies evident.Kidneys, profile, stomach, bladder, four-chamber heart, three-vessel cord appear normal. IMPRESSION: 1. Viable fetus in the cephalic presentation with a posterior right lateral placenta grade 2. 2. Fluid is within normal limits with an amniotic fluid index 11.21 cm, MVP 3.70 cm. 3. Biophysical profile is 8/8 with good breathing movement and movement seen. 4. There has been good interval growth with the fetus currently 56th percentile. 5. Limited anatomical scan appears normal. Dictated by: Tyron Elizondo MD 02/04/2025 08:41 Tyron Elizondo MD in [facility] 02/04/2025 08:41
== END 2025-02-03 23:59 | disposition home or self-care (01) ==
LOC: RAD 14:58
PROVIDERS: PCP Internal Medicine Adolescent Medicine; Visit Provider Obstetrics & Gynecology
DX: O09.293 Supervision of pregnancy with other poor reproductive or obstetric history, third trimester (principal); O10.913 Unspecified pre-existing hypertension complicating pregnancy, third trimester; O99.213 Obesity complicating pregnancy, third trimester; E66.9 Obesity, unspecified; Z3A.35 35 weeks gestation of pregnancy; Z36.2 Encounter for other antenatal screening follow-up
CPT/HCPCS: 76816; 76819

== ENCOUNTER 2025-02-11 15:03 | Outpatient (CLI) | payer BC, SELFPAY ==
--- NOTE | 2025-02-11 15:15 | US_ITS ---
PROCEDURE: US OB BIOPHYSICAL PROFILE CLINICAL INDICATION: CHTN COMPARISON: US US OB BIOPHYSICAL PROFILE from 01/27/2025 US US OB BIOPHYSICAL PROFILE from 02/03/2025 FINDINGS: Transabdominal sonographic images of the uterus were obtained. From her established due date she is 36weeks 3days. The following parameters are obtained: Viable Fetus in the cephalic presentation with a posterior placenta grade 2. Measurements: heart Rate = 142bpm Amniotic fluid index: 11.01cm, MVP 3.42 cm Qualitative AFV:2 Breathing movements: 2 Gross Body Movements: 2 Tone: 2 Biophysical profile score: 8 No obvious anomalies evident.Kidneys, profile, stomach, bladder, four-chamber heart, three-vessel cord appear normal. IMPRESSION: 1. Viable fetus in the cephalic presentation with posterior placenta grade 2. 2. The fluid is within normal limits with an amniotic fluid index 11.01 cm, MVP 3.42 cm. 3. Biophysical profile is 8/8 with good breathing movement and movement seen. 4. The tongue on this study seems to be enlarged. This was not seen on prior studies. Suggest follow-up. 5. The rest of the limited anatomical scan appears normal. Dictated by: Tyron Elizondo MD 02/11/2025 17:41 Tyron Elizondo MD in [facility] 02/11/2025 17:41
== END 2025-02-11 23:59 | disposition home or self-care (01) ==
LOC: RAD 15:03
PROVIDERS: PCP Internal Medicine Adolescent Medicine; Visit Provider Obstetrics & Gynecology
DX: O35.DXX0 Maternal care for other (suspected) fetal abnormality and damage, fetal gastrointestinal anomalies, not applicable or unspecified (principal); O10.913 Unspecified pre-existing hypertension complicating pregnancy, third trimester; O99.213 Obesity complicating pregnancy, third trimester; O09.293 Supervision of pregnancy with other poor reproductive or obstetric history, third trimester; E66.9 Obesity, unspecified; Z3A.36 36 weeks gestation of pregnancy
CPT/HCPCS: 76819

== ENCOUNTER 2025-02-15 15:34 | Outpatient (CLI) | payer BC, SELFPAY ==
--- NOTE | 2025-02-15 15:45 | US_ITS ---
PROCEDURE: US OB BIOPHYSICAL PROFILE CLINICAL INDICATION: CHTN COMPARISON: No exams were available for comparison FINDINGS: Transabdominal sonographic images of the uterus were obtained. From her established due date she is 37weeks 0 days. The following parameters are obtained: Viable Fetus in the cephalic presentation with a fundal placenta grade 2. Measurements: heart Rate = 142bpm Amniotic fluid index: 9.42cm, MVP 5.0 cm Qualitative AFV:2 Breathing movements: 2 Gross Body Movements: 0 Tone: 0 Biophysical profile score: 4 No obvious anomalies evident.Kidneys, stomach, bladder, three-vessel cord appear normal. IMPRESSION: 1. Viable fetus in the cephalic presentation with a fundal placenta grade 2. 2. The fluid is within normal limits with an amniotic fluid index 9.42 cm, MVP 5.0 cm. 3. Biophysical profile is 4/8 with no gross body movements or tone seen. There is good breathing movement. 4. Limited anatomical scan appears normal. 5. Dr. Nash was notified and the patient was admitted to labor and delivery. Dictated by: Tyron Elizondo MD 02/16/2025 09:30 Tyron Elizondo MD in [facility] 02/16/2025 09:30
== END 2025-02-15 23:59 | disposition home or self-care (01) ==
LOC: RAD 15:35
PROVIDERS: PCP Internal Medicine Adolescent Medicine; Visit Provider Obstetrics & Gynecology
DX: O10.913 Unspecified pre-existing hypertension complicating pregnancy, third trimester (principal); O09.293 Supervision of pregnancy with other poor reproductive or obstetric history, third trimester; O99.213 Obesity complicating pregnancy, third trimester; E66.9 Obesity, unspecified; Z3A.37 37 weeks gestation of pregnancy
CPT/HCPCS: 76819

== ENCOUNTER 2025-02-15 16:49 | Inpatient (IN) | payer BC, SELFPAY ==
[2025-02-15 16:39] LABS: Microscopic, Urine URINE MICROSCOPIC (MICROSCOPIC)
[2025-02-15 16:46] LABS: Bilirubin,Urine Negative (Negative); Color,Urine YELLOW (Yellow); Glucose,Urine (UA) Negative (Negative); Ketones,Urine Negative (Negative); Leukocyte Esterase,Urine Negative (Negative); PH,Urine 6.5 (5.0-8.5); Protein,Urine Negative (Negative); Specific Gravity, Urine 1.010 (1.005-1.030); Urobilinogen,Urine 0.2 EU/dl (0.2)
[2025-02-15 17:09] LABS: Bacteria,Urine 3+ /lpf
[2025-02-15 17:31] VITALS: BMI 34.5
[2025-02-15 18:05] LABS: Hematocrit 33.6 % (37.0-47.0); Hemoglobin 11.2 g/dL (12.2-16.2); Immature Granulocytes % 0.7 %; Mean Corpuscular HGB Conc 33.3 g/dL (31.8-35.4); Mean Corpuscular Hemoglobin 28.2 pg (27.0-31.2); Mean Corpuscular Volume 84.6 fl (81-99); Nucleated Red Blood Cells % 0 %; Platelet Count 177 K/mm3 (142-424); Red Blood Count 3.97 M/mm3 (4.20-5.40); Red Cell Distribution Width-SD 45.0 fL; White Blood Count 9.4 K/mm3 (4.8-10.8)
[2025-02-15 18:18] LABS: Alanine Aminotransferase 15 U/L (12-78); Albumin Level 3.8 g/dl (3.5-5.0); Albumin/Globulin Ratio 1.1 (1.1-1.8); Alkaline Phosphatase 121 U/L (38-126); Anion Gap 9.4 mEq/L (5-15); Aspartate Amino Transferase 22 U/L (14-36); Bilirubin,Total 0.6 mg/dl (0.2-1.3); Blood Urea Nitrogen 4 mg/dl (7-17); Calcium 9.9 mg/dl (8.4-10.2); Carbon Dioxide 23 mmol/L (22.0-30.0); Chloride 104 mmol/L (98-107); Creatinine Clearance Estimated 166 mL/min (50-200); Creatinine,Serum 0.70 mg/dl (0.52-1.04); Estimated Glomerular Filt Rate 99 ml/min (>60); GFR (African American) 120 ML/MIN (>60); Globulin 3.4 g/dL (1.3-3.2); Glucose 95 mg/dl (74-100); Potassium 3.4 mmoL/L (3.5-5.1); Sodium 133 mmol/L (136-145); Total Protein,Serum 7.2 g/dl (6.3-8.2)
[2025-02-15] MEDS: LACTATED RINGERS 1000ML 1,000 ML 999 ML IV (18:20)
[2025-02-15 19:30] VITALS: BP 129/68; PULSE 87; RESP 16; TEMP 36.8; O2SAT 99
[2025-02-15] MEDS: LABETALOL 100MG TABLET 200 MG PO (20:46)
[2025-02-16] VITALS (8 sets, daily range): BP systolic 92–138; BP diastolic 55–88; PULSE 81–111; RESP 16–18; TEMP 36.6–36.8; O2SAT 97–100
--- NOTE | 2025-02-16 07:00 | US_ITS ---
PROCEDURE: US OB BIOPHYSICAL PROFILE CLINICAL INDICATION: BPP 4/8 on 02/15/2025 COMPARISON: US US OB /MATERNAL DETAIL from 10/25/2024 US US OB BIOPHYSICAL PROFILE from 12/21/2024 US OB BIOPHYSICAL PROFILE from 01/13/2025 US US OB BIOPHYSICAL PROFILE from 01/20/2025 US OB BIOPHYSICAL PROFILE from 01/24/2025 US OB BIOPHYSICAL PROFILE from 01/27/2025 US OB BIOPHYSICAL PROFILE from 02/03/2025 US OB BIOPHYSICAL PROFILE from 02/11/2025 US US OB BIOPHYSICAL PROFILE from 02/15/2025 FINDINGS: Transabdominal sonographic images of the uterus were obtained. From her established due date she is 37weeks 1day. The following parameters are obtained: Viable Fetus in the cephalic presentation with a lateral posteriorly wrapped placenta grade 2. Cervix measures 2.71 cm in length. Measurements: heart Rate = 146bpm Amniotic fluid index: 8.8cm MVP 5.56 cm. Qualitative AFV:2 Breathing movements: 2 Gross Body Movements: 2 Tone: 2 Biophysical profile score: 8 No obvious anomalies evident.Kidneys, stomach, bladder, four-chamber heart, three-vessel cord appear normal. IMPRESSION: 1. Viable fetus in the cephalic presentation with a lateral posteriorly wrapped placenta grade 2. 2. The fluid is within normal limits with an amniotic fluid index 8.8 cm, MVP 5.56 cm. 3. Biophysical profile is 8/8 with good breathing movement and movement seen today. 4. Limited anatomical scan appears normal. Dictated by: Tyron Elizondo MD 02/16/2025 16:49 Tyron Elizondo MD in [facility] 02/16/2025 16:49
[2025-02-16] MEDS: LACTATED RINGERS 1000ML 1,000 ML 999 ML IV ×2 (08:49→09:28)
[2025-02-16] MEDS: CITRIC ACID/SODIUM CITRATE ORAL SOLN 30ML UDC 30 ML PO (09:06)
--- NOTE | 2025-02-16 09:42 | EXP.OB.APHP ---
OB - H&P: HPI Antepartum History of Present Illness Chief complaint: Repeat History of present illness: Mrs Brianna Singleton is a 29 yo at 37w1d admitted to [facility] L&D yesterday, 02/15/25, from radiology for BPP 4/8. 2 off of gross movement and 2 off for flex/ext. MIRELLA was within normal limits. NST throughout the night went through periods of reactive and non reactive. Repeat BPP this morning was 8/8 initially but 15 minutes into the ultrasound baby stopped moving despite efforts to encourage baby to move. Brianna has had good care. complicated by CHTN and maternal obesity. She has been getting twice weekly testing secondary to CHTN. She has been taking Labetalol 200 mg PO BID that was started at 9 weeks gestation. She was also taking baby Aspirin. History of Present Criteria for establishing EDC:: based on 1st trimester US only care: good care Ultrasounds: normal mid trimester US Obstetrical complications: previous and other (Chronic hypertension) Medical complications: none Labs Blood type: O (+) positive Rubella: immune RPR/VDRL: nonreactive HBsAG: negative [facility] Disclaimer: The information contained in this section may have been updated after the patient was seen, as this information can be updated by other users. Medical History (Updated 02/16/25 @ 09:55 by Nancy Allen DO) Non-reassuring status Chronic hypertension affecting History of gestational hypertension Maternal obesity affecting , antepartum Mild acid reflux Surgical History History of section Social History (Updated 02/16/25 @ 07:30 by Constance New RN) Smoking Status: Never smoker alcohol intake: never substance use type: denies use current occupational status: employed Travel in the last 8 weeks?: None household members: spouse and children housing: house do you feel safe at home: Yes victim of physical abuse: No victim of emotional abuse: No victim of sexual abuse: No Have you lived/traveled outside US in past 30 days?: No Contact w/someone who lives/traveled outside US past 30 days?: No Exposure to someone with infectious disease in past 14 days?: No Do you have a fever (greater than 100.4 F or 38 C)?: No Have you tested positive for COVID-19?: No Exposed to someone with COVID-19 in past 14 days?: No Do you have a sore throat?: No Do you have a cough?: No Do you have any weakness?: No Are you experiencing any nausea/vomitting?: No Do you have any diarrhea?: No Are you experiencing any unusual bleeding?: No Do you have any muscle aches/pain?: No Do you have any abdominal pain?: No Are you experiencing loss of taste or smell?: No Other Medical History Have you received the Flu Vaccine for this season: No Have you received the Pneumonia Vaccine: No Review of Systems Review of Systems Review of systems:: pertinent systems reviewed and negative unless documented below Meds Home Medications and Allergies Home Medications ?Medication ?Instructions ?Recorded ?Confirmed ?Type vits 168-iron 27 mg-folic 1 cap PO DAILY 07/22/24 02/15/25 History acid 800 mcg-omega3 235 mg capsule (One-A-Day -1) ferrous sulfate 325 mg (65 mg 325 mg PO Q48H 12/21/24 02/15/25 History iron) tablet labetalol 200 mg tablet 200 mg PO BID 02/15/25 02/15/25 History New Prescriptions to Start Prescriptions: Allergies Allergy/AdvReac Type Severity Reaction Status Date / Time No Known Allergies Allergy Verified 02/08/25 10:05 OB - H&P: Exam Physical Exam Vital signs: Temp Pulse Resp BP Pulse Ox O2 Del Method 97.8 F 111 H 18 116/64 100 Room Air 02/16/25 07:16 02/16/25 07:16 02/16/25 07:16 02/16/25 07:16 02/16/25 07:16 02/16/25 07:16 Constitutional no acute distress and cooperative Routine HEENT Exam Head: Present normocephalic and atraumatic Eye: Absent conjunctivae pink ENT: Present mucous membranes moist Routine Neck Exam Present full ROM Routine Respiratory Exam Present CTA bilaterally and normal respiratory effort Routine Cardiovascular Exam Present RRR Routine Abdominal Exam Present soft (Gravid); Absent tenderness Routine Rectal Exam Patient deferred: visual exam Routine Exam External: Present normal urethra appearance; Absent erythema, tenderness, lesions, lacerations or vulvar tenderness Routine Extremities Exam Present full ROM; Absent edema or calf tenderness Routine Neurological Exam Present alert, moving all extremities and normal speech Routine Psychiatric Exam Present normal affect and cooperative OB - Results Labs Labs: Short CBC 02/15/25 Range/Units 17:52 WBC 9.4 (4.8-10.8) K/mm3 Hgb 11.2 L (12.2-16.2) g/dL Hct 33.6 L (37.0-47.0) % Plt Count 177 (142-424) K/mm3 BMP 02/15/25 17:52 Sodium 133 L Potassium 3.4 L Chloride 104 Carbon Dioxide 23 BUN 4 L Creatinine 0.70 Glucose 95 Calcium 9.9 Liver Function 02/15/25 Range/Units 17:52 Total Bilirubin 0.6 (0.2-1.3) mg/dl AST 22 (14-36) U/L ALT 15 (12-78) U/L Alkaline Phosphatase 121 (38-126) U/L Albumin 3.8 (3.5-5.0) g/dl Urine 02/15/25 Range/Units 16:34 Urine Color Yellow (Yellow) Urine Appearance Clear (Clear) Urine pH 6.5 (5.0-8.5) Ur Specific [place] 1.010 (1.005-1.030) Urine Protein Negative (Negative) Urine Glucose (UA) Negative (Negative) OB - A/P Antepartum (1) 37 weeks gestation of : Status: Resolved (2) Non-reassuring status: Status: Acute (3) Chronic hypertension affecting : Status: Acute (4) Maternal obesity affecting , antepartum: Status: Acute (5) History of section: Status: Acute Additional Plan Planning to breastfeed?: Yes Additional Information:: Discussed BPP 07/13 yesterday followed by intermittent reactive NST and absent movement this morning. Decision was made to proceed with repeat . Discussed risks, benefits, alternatives, expectations and possible complications of surgery. All questions addressed and answered. She voiced understanding of risks and possible complications. Consent form signed Proceed with repeat
--- NOTE | 2025-02-16 11:26 | EXP.OP.NOTE ---
Date of procedure: 02/16/25 Pre-op Diagnosis:: 1. Non-reassuring status 2. IUP at 37 weeks 3. Chronic hypertension in 4. Maternal obesity 5. History of x 1 Post-op Diagnosis:: 1. Non-reassuring status 2. IUP at 37 weeks 3. Chronic hypertension in 4. Maternal obesity 5. History of x 1 Procedure performed:: Repeat Low Transverse Section Surgeon:: Nancy Allen DO Junior Mechanical Engineer(s):: Tyron Elizondo MD SOCIAL RESEARCH ASSISTANT:: Aleksandr Mercedes Anesthesia: spinal Estimated blood loss (mL): 300 Clinical Note:: Mrs Brianna Singleton is a 29 yo at 37w1d admitted to [facility] L&D yesterday, 02/15/25, from radiology for BPP 4/8. 2 off of gross movement and 2 off for flex/ext. MIRELLA was within normal limits. NST throughout the night went through periods of reactive and non reactive. Repeat BPP this morning was 8/8 initially but 15 minutes into the ultrasound baby stopped moving despite efforts to encourage baby to move. Brianna has had good care. complicated by CHTN and maternal obesity. She has been getting twice weekly testing secondary to CHTN. She has been taking Labetalol 200 mg PO BID that was started at 9 weeks gestation. She was also taking baby Aspirin. Operative findings:: 1. Live female baby, Lynn, weighing 6 lb 9 oz. APGARs 8 (1 min), 9 (5 min). EBL 300 mL 2. Grossly normal appearing uterus, bilateral fallopian tubes and ovaries Operative note:: The risks, benefits and alternatives of the procedure were reviewed with the patient. Informed consent was obtained. Patient was taken to the operating room where spinal anesthesia was placed. The patient received 2 grams of Ancef preoperatively. Patient was placed in dorsal supine position with a leftward tilt. SCDs in place. Carias catheter had been placed and was draining clear urine prior to the start of the procedure. heart tones were obtained. Vagina was prepped with Betadine swabs x 3. Patient was then prepped and draped in normal sterile fashion. Allis clamp test was performed to ensure adequate anesthesia. A Pfannenstiel skin incision was made 2 cm above pubic symphysis. This was carried through to underlying layer of fascia. Fascia was incised in midline, extended laterally with Garrido scissors. Superior aspect of fascial incision was grasped with two Priyank clamps, elevated up, and rectus muscle dissected off bluntly and sharply with Garrido scissors. The retcus muscle was then in the midline and the peritoneum was entered bluntly with a digit. Peritoneal incision was then extended superiorly and inferiorly with good visualization of the bladder. Jomar retractor was inserted. The lower uterine segment was incised in a transverse fashion. Clear amniotic fluid was noted. Head was delivered without difficulty. Remainder of body was delivered without difficulty. Mouth and nares were bulb suctioned. Spontaneous cry was noted. Delayed cord clamping was performed for 60 seconds. The umbilical cord was clamped and cut. The was handed to awaiting pediatric staff in stable condition. Dr. Pardo was present. Apgars were 8(1 min), 9(5 min). Cord blood was obtained. Gentle traction on the umbilical cord and uterine fundal massage delivered the placenta. Placenta was intact. Placenta will be sent to pathology for review. Uterus was cleared of all clots and debris with a moist laparotomy sponge. Corners of the uterine incision were grasped with Allis clamps. The uterine incision was reapproximated with # 1 Vicryl suture in a running, locked stitch. Second layer of the same stitch was used to imbricate the incision. Vesicouterine peritoneum was reapproximated in a running locked stitch with 2-0 Vicryl suture. Hemostasis was noted. Posterior cul-de-sac was cleaned with moist laparotomy sponge. Gutters cleared of all clots and debris with a moist laparotomy sponge. Reinspection of the lower uterine segment demonstrated small amount of oozing. Surgicel powder was applied over uterine incision. Hemostasis was noted. At this point all instruments and sponges were removed from the pelvis.? The peritoneum was grasped with Narcisa clamps x 3. The peritoneum was reapproximated with 0 Vicryl suture in a running stitch. The corners of the fascia were grasped with Priyank clamps, and the fascia was reapproximated with # 1 Vicryl suture. The subcutaneous tissue was reapproximated with 3-0 Vicryl. Subcutaneous tissue was irrigated with clear return of fluids. The skin was reapproximated with Insorb caim. Steri strips and Telfa was placed over closed Pfannenstiel skin incision. At the end of the procedure, the uterus was firm with minimal vaginal bleeding. Patient tolerated the procedure well. Instrument, sponges and needle counts were correct x 2. Mom and baby were transported to recovery room in stable condition. Condition: stable Disposition: same day Specimens:: 1. Placenta and umbilical cord 2. Cord blood Complications:: None
[2025-02-16] MEDS: OXYTOCIN/RINGERS LACTATE 30 UNITS/500 ML BAG 999 UNITS IV (11:35)
--- NOTE | 2025-02-16 11:42 | EXP.ANES.CKL ---
[facility] Disclaimer: The information contained in this section may have been updated after the patient was seen, as this information can be updated by other users. Medical History (Updated 02/16/25 @ 09:55 by Nancy Allen DO) Non-reassuring status Chronic hypertension affecting History of gestational hypertension Maternal obesity affecting , antepartum Mild acid reflux Surgical History History of section Social History (Updated 02/16/25 @ 07:30 by Constance New RN) Smoking Status: Never smoker alcohol intake: never substance use type: denies use current occupational status: employed Travel in the last 8 weeks?: None household members: spouse and children housing: house do you feel safe at home: Yes victim of physical abuse: No victim of emotional abuse: No victim of sexual abuse: No Have you lived/traveled outside US in past 30 days?: No Contact w/someone who lives/traveled outside US past 30 days?: No Exposure to someone with infectious disease in past 14 days?: No Do you have a fever (greater than 100.4 F or 38 C)?: No Have you tested positive for COVID-19?: No Exposed to someone with COVID-19 in past 14 days?: No Do you have a sore throat?: No Do you have a cough?: No Do you have any weakness?: No Are you experiencing any nausea/vomitting?: No Do you have any diarrhea?: No Are you experiencing any unusual bleeding?: No Do you have any muscle aches/pain?: No Do you have any abdominal pain?: No Are you experiencing loss of taste or smell?: No [facility] Anesthesia Checklist Patient Identification Patient Identification: Arm Band Structural Data Admitted From: Home Planned Operative Procedure/s: Repeat C/S Consent for Planned Operative Procedure(s) Verified: Yes Verified Documents: Surgical Consent and History and Physical NPO Status Verified Time NPO: 00:00 Additional verifications Anesthesia Reactions: No Neurological Assessment Level of Consciousness: Awake, Alert and Appropriate Anesthesia Plan Anesthesia Risk discussed: Yes Anesthesia Plan: Verified ASA Class: II Anesthesia Type: Spinal (with Bilateral TAP Block)
--- NOTE | 2025-02-16 11:43 | EXP.ANES.I ---
[facility] Anesthesia Record Part I Anesthesia Record I Intake, IV Amount: 1,300 Hydration: Adequate Estimated blood loss (mL): 300 Urine output (mL): 600 Blood Products used (#): none Blood Pressure: 131/88 SaO2: 100 Pulse Rate: 94 Airway Patency: Patent Respiratory Rate: 16 Temperature: 98 F Patient is:: Awake and Stable Stable to PACU at:: 11:30
[2025-02-16] MEDS: LACTATED RINGERS 1000ML 1,000 ML 125 ML IV (12:10)
[2025-02-16] MEDS: ACETAMINOPHEN 500MG TAB 1000 MG PO ×2 (12:12→19:25)
[2025-02-16 14:04] LABS: Microscopic,Cath URINE MICROSCOPIC (MICROSCOPIC)
[2025-02-16 14:06] LABS: Appearance,Urine/Cath CLEAR (Clear); Bilirubin,Cath Negative (Negative); Blood, Urine/Cath Negative (Negative); Color,Urine/Cath YELLOW (Yellow); Glucose,Urine/Cath (UA) Negative (Negative); Ketones,Urine/Cath Negative (Negative); Leukocyte Esterase,Cath Negative (Negative); Nitrate,Cath Negative (Negative); PH,Urine/Cath 6.5 (5.0-8.5); Protein,Urine/Cath Negative (Negative); Specific Gravity, Urine/Cath <= 1.005 (1.005-1.030); Urobilinogen,Cath 0.2 EU/dl (0.2)
[2025-02-16 14:48] LABS: RPR W/RFX Titers Nonreactive (Nonreactive)
[2025-02-16 14:55] LABS: RBC,Urine/Cath Occasional # /hpf (0-3); Squamous Epithelial Ur./Cath Occasional #/hpf (0-5); WBC,Urine/Cath Occasional #/hpf (0-3)
[2025-02-16] MEDS: KETOROLAC 30MG/ML VIAL 30 MG IV ×2 (15:50→21:37)
[2025-02-16] MEDS: PRENATAL MULTIVITAMIN W/IRON 1 EACH PO (17:50)
[2025-02-16] MEDS: LABETALOL 100MG TABLET 200 MG PO (21:37)
[2025-02-17] MEDS: KETOROLAC 30MG/ML VIAL 30 MG IV (04:01)
[2025-02-17 07:45] LABS: Hematocrit 30.8 % (37.0-47.0); Hemoglobin 10.1 g/dL (12.2-16.2); Immature Granulocytes % 0.4 %; Mean Corpuscular HGB Conc 32.8 g/dL (31.8-35.4); Mean Corpuscular Hemoglobin 28.0 pg (27.0-31.2); Mean Corpuscular Volume 85.3 fl (81-99); Nucleated Red Blood Cells % 0 %; Platelet Count 153 K/mm3 (142-424); Red Blood Count 3.61 M/mm3 (4.20-5.40); Red Cell Distribution Width-SD 45.7 fL; White Blood Count 10.7 K/mm3 (4.8-10.8)
--- NOTE | 2025-02-17 08:57 | P.PN_ITS ---
Subjective *Date: 02/17/25 *Time: 08:57 Medical Exam Vital signs and Labs for Last 24 Hours: Vital Signs Temp Pulse Pulse Resp BP BP Pulse Ox 02/16/25 15:53 98.2 F 81 17 126/64 97 02/16/25 12:00 98.0 F 91 H 17 138/65 98 02/16/25 11:50 98.0 F 94 H 18 135/62 98 02/16/25 11:45 98 F 94 H 16 131/88 02/16/25 11:40 98.0 F 101 H 18 135/60 98 02/16/25 11:30 98.0 F 100 H 18 131/88 100 O2 Del Method 02/16/25 15:53 Room Air 02/16/25 12:00 Room Air 02/16/25 11:50 Room Air 02/16/25 11:45 02/16/25 11:40 Room Air 02/16/25 11:30 Room Air Intake and Output 02/16/25 02/17/25 02/17/25 23:59 07:59 15:59 Intake Total 776.083 / 4425.833 100 / 100 Balance 776.083 / 4425.833 100 / 100 Intake: Intake, Total IV Amount 776.083 / 3125.833 100 / 100 Cefazolin Sodium 2 gm In 0.9 % 100 / 100 100 / 100 Sodium Chloride 100 ml @ 200 mls/hr IV Q8H ALIREZA Rx#:[id number] Lactated Ringers 1000ML 1,000 502.083 / 502.083 ml @ 125 mls/hr IV .Q8H ALIREZA Rx# :[id number] Oxytocin/Ringers Lactate 30 174 / 423.75 units In 500 ml @ 40 mls/hr IV .[id number] ALIREZA Rx#:[id number] Laboratory Results - last 24 hr 02/15/25 17:52: RPR w/Rflx to Titer Nonreactive 02/16/25 10:15: Urine Color Yellow, Urine Appearance Clear, Urine pH 6.5, Ur Specific [place] <= 1.005, Urine Protein Negative, Urine Glucose (UA) Negative, Urine Ketones Negative, Urine Blood Negative, Urine Nitrate Negative, Urine Bilirubin Negative, Urine Urobilinogen 0.2, Ur Leukocyte Esterase Negative, Urine RBC Occasional, Urine WBC Occasional, Ur Squamous Epith Cells Occasional, Urine Bacteria None 02/17/25 07:12: WBC 10.7, RBC 3.61 L, Hgb 10.1 L, Hct 30.8 L, MCV 85.3, MCH 28.0, MCHC 32.8, RDW 14.7, Plt Count 153, MPV 11.6 H, Neut % (Auto) 77.3, Lymph % (Auto) 14.4, [place] % (Auto) 6.2, Eos % (Auto) 1.2, Baso % (Auto) 0.5, Neut # (Auto) 8.3 H, Lymph # (Auto) 1.6, [place] # (Auto) 0.7, Eos # (Auto) 0.1, Baso # (Auto) 0.1 I & O for Labs for Last 24 Hours: Intake & Output 02/14/25 02/15/25 02/16/25 02/17/25 23:59 23:59 23:59 23:59 Intake Total 1000 / 1000 4425.833 / 4425.833 100 / 100 Balance 1000 / 1000 4425.833 / 4425.833 100 / 100 Weight 195 lb
--- NOTE | 2025-02-17 12:58 | P.DS_ITS ---
General Admission date:: 02/15/25 Discharge date: 02/17/25 HPI HPI HPI: POD # 1 s/p RLTCS Feeling well. Pain controlled. Breast feeding. Lochia is appropriate. Voiding without difficulty and passing flatus. Tolerating regular diet. Denies fever/chills, chest pain and shortness of breath. No headaches, vision changes, lightheadedness/dizziness. No lower extremity swelling. Ambulating well ad dalia. Hospital Course Hospital Course Hospital Course: Mrs Brianna Singleton is a 29 yo at 37w1d admitted to [facility] L&D yesterday, 02/15/25, from radiology for BPP 4/8. 2 off of gross movement and 2 off for flex/ext. MIRELLA was within normal limits. NST throughout the night went through periods of reactive and non reactive. Repeat BPP this morning was 8/8 initially but 15 minutes into the ultrasound baby stopped moving despite efforts to encourage baby to move. Brianna has had good care. complicated by CHTN and maternal obesity. She has been getting twice weekly testing secondary to CHTN. She has been taking Labetalol 200 mg PO BID that was started at 9 weeks gestation. She was also taking baby Aspirin. She underwent repeat on 02/16/25. She delivered a live female baby, Lynn, weighing 6 lb 9 oz. APGARs 8 (1 min), 9 (5 min). EBL 300 mL. She did well /postoperatively. Pain controlled. Breast feeding. Lochia appropriate. Voiding without difficulty and passing flatus. Tolerating regular diet. Denies fever/chills, chest pain and shortness of breath. No hea daches, dizziness/lightheadedness or vision changes. Vital signs stable, afebrile. Labetalol discontinued after delivery. Heart regular rate and rhythm. Lungs clear to auscultation. Abdomen soft, nontender. No lower extremity swelling. Ambulating well ad dalia. Normal hospital course. She was discharged to home on POD # 1 with instructions to follow-up in the office on Friday, 02/21 for BP check and in 2 weeks for first visit. Exam Data for Last 24 hours Vital signs and Labs for Last 24 Hours: Temp Pulse Resp BP Pulse Ox O2 Del Method 98.2 F 81 17 126/64 97 Room Air 02/16/25 15:53 02/16/25 15:53 02/16/25 15:53 02/16/25 15:53 02/16/25 15:53 02/16/25 15:53 Laboratory Results - last 24 hr 02/15/25 17:52: RPR w/Rflx to Titer Nonreactive 02/16/25 10:15: Urine Color Yellow, Urine Appearance Clear, Urine pH 6.5, Ur Specific [place] <= 1.005, Urine Protein Negative, Urine Glucose (UA) Negative, Urine Ketones Negative, Urine Blood Negative, Urine Nitrate Negative, Urine Bilirubin Negative, Urine Urobilinogen 0.2, Ur Leukocyte Esterase Negative, Urine RBC Occasional, Urine WBC Occasional, Ur Squamous Epith Cells Occasional, Urine Bacteria None 02/17/25 07:12: WBC 10.7, RBC 3.61 L, Hgb 10.1 L, Hct 30.8 L, MCV 85.3, MCH 28.0, MCHC 32.8, RDW 14.7, Plt Count 153, MPV 11.6 H, Neut % (Auto) 77.3, Lymph % (Auto) 14.4, [place] % (Auto) 6.2, Eos % (Auto) 1.2, Baso % (Auto) 0.5, Neut # (Auto) 8.3 H, Lymph # (Auto) 1.6, [place] # (Auto) 0.7, Eos # (Auto) 0.1, Baso # (Auto) 0.1 I & O for Last 24 hours: Intake & Output 02/14/25 02/15/25 02/16/25 02/17/25 23:59 23:59 23:59 23:59 Intake Total 1000 / 1000 4425.833 / 4425.833 100 / 100 Balance 1000 / 1000 4425.833 / 4425.833 100 / 100 Weight 195 lb Microbiology Reports for the Last 24 Hours: Microbiology 02/15/25 16:34 Urine,Clean Catch Urine Culture - Final Multiple organisms, suggests contamination. Constitutional Constitutional: no acute distress and cooperative *Routine HEENT Exam Head: Present normocephalic and atraumatic Eye: Absent conjunctivae pink ENT: Present mucous membranes moist *Routine Neck Exam Neck: Present full ROM *Routine Respiratory Exam Respiratory: Present CTA bilaterally and normal respiratory effort *Routine Cardiovascular Exam Cardiovascular: Present RRR *Routine Abdominal Exam Abdominal: Present soft and normoactive bowel sounds; Absent tenderness Comments: Uterine fundus firm and below umbilicus, Pfannenstiel incision clean/dry/intact *Routine Rectal Exam Patient deferred: visual exam *Routine Exam Patient deferred: external exam *Routine Extremities Exam Extremities: Present full ROM; Absent edema or calf tenderness *Routine Neurological Exam Neurological: Present alert, moving all extremities and normal speech Routine Psychiatric Exam Psychiatric: Present normal affect and cooperative Results Data Completed and Pending Labs on day of discharge: Labs from last 24 hours 02/17/25 02/16/25 02/15/25 07:12 10:15 17:52 WBC 10.7 RBC 3.61 L Hgb 10.1 L Hct 30.8 L MCV 85.3 MCH 28.0 MCHC 32.8 RDW 14.7 Plt Count 153 MPV 11.6 H Neut % (Auto) 77.3 Lymph % (Auto) 14.4 [place] % (Auto) 6.2 Eos % (Auto) 1.2 Baso % (Auto) 0.5 Neut # (Auto) 8.3 H Lymph # (Auto) 1.6 [place] # (Auto) 0.7 Eos # (Auto) 0.1 Baso # (Auto) 0.1 Urine Color Yellow Urine Appearance Clear Urine pH 6.5 Ur Specific [place] <= 1.005 Urine Protein Negative Urine Glucose (UA) Negative Urine Ketones Negative Urine Blood Negative Urine Nitrate Negative Urine Bilirubin Negative Urine Urobilinogen 0.2 Ur Leukocyte Esterase Negative Urine RBC Occasional Urine WBC Occasional Ur Squamous Epith Cells Occasional Urine Bacteria None RPR w/Rflx to Titer Nonreactive DS: Diagnosis Discharge Diagnosis (1) S/P : Status: Acute Code(s): Z98.891 - History of uterine scar from previous surgery (2) 37 weeks gestation of : Status: Resolved Code(s): Z3A.37 - 37 weeks gestation of (3) Non-reassuring status: Status: Acute (4) Chronic hypertension affecting : Status: Acute Code(s): O10.919 - Unspecified pre-existing hypertension complicating , unspecified trimester (5) Maternal obesity affecting , antepartum: Status: Acute Code(s): O99.210 - Obesity complicating , unspecified trimester Qualifiers: Obesity type affecting : unspecified obesity Qualified Code(s): O99.210 - Obesity complicating , unspecified trimester (6) History of section: Status: Acute Code(s): Z98.891 - History of uterine scar from previous surgery (7) Acute blood loss anemia: Status: Acute Code(s): D62 - Acute posthemorrhagic anemia Meds Home Medications and Allergies Home Medications ?Medication ?Instructions ?Recorded ?Confirmed ?Type vits 168-iron 27 mg-folic 1 cap PO DAILY 07/0602/15/25 History acid 800 mcg-omega3 235 mg capsule (One-A-Day -1) ferrous sulfate 325 mg (65 mg 325 mg PO Q48H 12/21/24 02/15/25 History iron) tablet ibuprofen 800 mg tablet 800 mg PO Q8H PRN pain #20 t abs 02/17/25 Rx oxycodone 5 mg tablet 5 mg PO Q4HP PRN Moderate Pa in 02/17/25 Rx (4-6) #20 tabs New Prescriptions to Start Prescriptions: Nancy Leiva oxycodone Nancy Allen Allergies Allergy/AdvReac Type Severity Reaction Status Date / Time No Known Allergies Allergy Verified 02/08/25 10:05 Discharge Plan Disposition Patient Disposition: Home, Self-Care Condition: Good Discharge Order Discharge Orders: Discharge Order (Routine); Ordered 02/17/25 Ordered By: Nancy Allen Follow up Plan Follow up with: Nancy Allen DO [Staff Physician, [employer]] - 03/02/25 1:45 pm Referral Note: Also follow-up Friday, 02/21 for nurse visit BP check Prescriptions/Medication Reconciliation: New oxycodone 5 mg Tablet 5 mg PO Q4HP PRN (Reason: Moderate Pain (4-6)) Qty: 20 0RF ibuprofen 800 mg tablet 800 mg PO Q8H PRN (Reason: pain) Qty: 20 0RF Continued ferrous sulfate 325 mg (65 mg iron) tablet 325 mg PO Q48H One-A-Day -1 27 mg iron- 800 mcg-235 mg capsule 1 cap PO DAILY Discontinued labetalol 200 mg tablet 200 mg PO BID Problem Reconciliation Problems Reviewed?: Yes Patient Discharge Instructions ACTIVITY: Limited activity DIET: continue same diet and regular diet Additional Instructions: Congratulations! Discharge: 1. Take 800 mg Ibuprofen every 8 hours as needed for pain. You can also take 500-1000 mg of Tylenol in between doses, every 6-8 hours. If pain persists you can take Oxycodone 5 mg, 1 tablet every 4-6 hours or longer as needed. 2. Nothing in the vagina for 6 weeks - no intercourse, douching or tampons. No tub baths/hot tubs or swimming pools - Drink plenty of fluids. - No strenuous activity or driving until released by your doctor. - Don't lift anything heavier than your in the [place] t 3. Reasons to return to L&D or call On-Call doctor - fever (greater than 100.4) - heavy vaginal bleeding (soaking through 1 pad in less than 2 hours) - vaginal discharge (malodorous and/or purulent) - severe headaches not resolved by medication 4. depression/blues - Normal to feel anxious/overwhelmed for first 2 weeks - Talk to your doctor if: severe anxiety, trouble bonding with baby, withdrawing from other family members, thoughts of harming yourself or others Blood Pressure check in Dr. Allen's office at 1:00pm It is my pleasure to be your doctor. Nancy Allen DO [facility] [place] [id number] Patient Instructions: Depression, Hemorrhage, DI for , DI for Pre-eclampsia, [facility] Post Discharge Instructions Print Language: Ch[place] Providers Primary Care Provider: Angelo Nicole Admit Provider: Valencia Nash Attending Provider: Valencia Nash
== END 2025-02-17 14:23 | disposition home or self-care (01) | DRG 787 ==
LOC: OBOUT 16:50 → OB 02-16 06:39
PROVIDERS: Obstetrics & Gynecology; Admitting Provider Obstetrics & Gynecology; PCP Internal Medicine Adolescent Medicine; Visit Provider Obstetrics & Gynecology
PROC: 10D00Z1 Extraction of Products of Conception, Low, Open Approach (ICD-10-PCS; CPT 59514; principal; 2025-02-16 09:45)
DX: O36.8130 Decreased fetal movements, third trimester, not applicable or unspecified (principal); D62 Acute posthemorrhagic anemia; O10.92 Unspecified pre-existing hypertension complicating childbirth; O34.211 Maternal care for low transverse scar from previous cesarean delivery; O99.214 Obesity complicating childbirth; Z3A.37 37 weeks gestation of pregnancy; Z37.0 Single live birth; O90.81 Anemia of the puerperium; Z23 Encounter for immunization; Z79.82 Long term (current) use of aspirin; Z79.899 Other long term (current) drug therapy
CPT/HCPCS: 51702; 59025; 76819; 80053; 81001; 85025; 86592; 86850; 87086; 94761; G0378; J0665; J0666; J1885; J2003; J2371; J2405; J3010; J7120